=== PATIENT | female | born 1995 | race African-American/Black ===

== ENCOUNTER 2023-08-03 18:18 | Emergency (ER) | payer OTHER ==
[~2023-08-03] VITALS: Ht 182.9 cm; Wt 108.9 kg
[2023-08-03 18:19] VITALS: BP_SYST 119; PULSE 87; RESP 19; TEMP 97.3; O2SAT 99
[2023-08-03] MEDS ORDERED: FLUT16SP16 NS (19:04)
[2023-08-03] MEDS ORDERED: PRED20TA PO (19:04)
== END 2023-08-03 19:29 | disposition home or self-care (01) ==
LOC: SED 18:18
DX: H69.93 Unspecified Eustachian tube disorder, bilateral (principal); Z79.899 Other long term (current) drug therapy
CPT/HCPCS: 81025; 99283

== ENCOUNTER 2023-08-25 18:33 | Emergency (ER) | payer OTHER ==
[~2023-08-25] VITALS: Ht 182.9 cm; Wt 104.3 kg
[~2023-08-25 18:33] MED LIST: FLUT16SP16 NS; PRED20TA PO
[2023-08-25 18:34] VITALS: BP_SYST 116; PULSE 88; RESP 17; TEMP 97; O2SAT 97
[2023-08-25 19:51] LABS: INFLUENZA TYPE A Negative (NEGATIVE); INFLUENZA TYPE B NEGATIVE (NEGATIVE)
[2023-08-25 19:52] LABS: COVID19 ANTIGEN SOFIA FIA POSITIVE (NEGATIVE)
[2023-08-25] MEDS ORDERED: NIRM1TAB5 PO (20:12)
[2023-08-25] MEDS ORDERED: IBUP-1969 PO (20:12)
== END 2023-08-25 20:57 | disposition home or self-care (01) ==
LOC: SED 18:33
DX: U07.1 COVID-19 (principal); R50.9 Fever, unspecified; R05.9 Cough, unspecified; J34.89 Other specified disorders of nose and nasal sinuses; Z79.899 Other long term (current) drug therapy
CPT/HCPCS: 36415; 71045; 81025; 99284